=== PATIENT | male | born 1955 | race Caucasian/White ===

== ENCOUNTER 2020-07-18 08:20 | Day surgery (SDC) | payer OTHER, SELFPAY ==
--- NOTE | 2020-07-15 16:27 | EKG12_ITS ---
Test Reason : PRE OP Blood Pressure : / mmHG Vent. Rate : 078 BPM Atrial Rate : 078 BPM P-R Int : 150 ms QRS Dur : 088 ms QT Int : 384 ms P-R-T Axes : 062 052 068 degrees QTc Int : 437 ms Normal sinus rhythm Normal ECG Confirmed by HECTOR HOLLIDAY, KUNAL ([id number]), editor city DIANE DEJESUS ([id number]) on 07/19/2020 9:34:53 AM Referred By: Alfredo Marshall Confirmed By:KUNAL YOUNG MD
[2020-07-15 17:11] LABS: Hematocrit 51.1 % (40-54); Hemoglobin 16.2 g/dL (13.0-16.5); Mean Corp Hgb Conc 31.7 g/dL (32-36); Mean Corpuscular Hgb 29.6 pg (27.0-32.0); Mean Corpuscular Volume 93.2 fL (80-94); Mean Platelet Vol. 8.5 fl (6.2-12.0); Platelet Count 312 K/mm3 (150-450); RBC Distribution Width CV 12.9 % (11.6-14.6); RBC Distribution Width SD 44.2 fl (35.1-43.9); Red Blood Count 5.48 M/mm3 (4.6-6.2); White Blood Count 10.7 K/mm3 (4.4-11.0)
[2020-07-15 17:22] LABS: Anion Gap 3 (5-15); BUN 15 mg/dL (7-18); BUN/Creat Ratio 16.1 RATIO (10-20); Chloride 106 mmol/L (98-107); Creatinine, Serum 0.93 mg/dL (0.70-1.30); EST Glomerular Filtration Rate 87 mL/min (>60); Est Glom Filt Rate - Afr Amer 105 mL/min (>60); Glucose 128 mg/dL (74-106); Potassium 3.9 mmol/L (3.5-5.1); Sodium Level 139 mmol/L (136-145)
[2020-07-18] VITALS (8 sets, daily range): BP systolic 122–142; BP diastolic 77–94; PULSE 68–81; RESP 16; TEMP 35.7–36.6; O2SAT 95–100; BMI 26.7
--- NOTE | 2020-07-18 | LES_PTH ---
PATIENT: VIVI GRACIA LOC: [facility] [place] U#:[id number] AGE/SX: 65/M ROOM: RE07/18/[address]: Dr. Alfredo Marshall MD : [id number] BED: DIS: 07/18/2020 SPEC #: [id number] RECD: 07/18/20 10:49 STATUS: YANA STAN #: [id number] LUIGI: 07/18/20 00:[address]: Alfredo Marshall DEPT: SURGICAL PATHOLOGY RECD BY: Ligia Wright ENTERED: 07/18/20 11:21 SP TYPE: Lesion OTHR DR: Dr. Rodriguez Ibarra MD Tissues: A - Skin of external ear, NOS B - Skin of external ear, NOS C - Skin of external ear, NOS D - Skin of external ear, NOS E - Skin of external ear, NOS Procedures: Frozen Section (charge) Surgery Specimen Level IV HEADER OPERATION: Excision ear carcinoma with frozen section PRE-OP DIAGNOSIS: Basal cell carcinoma of skin of left ear and external auricular canal TISSUE SUBMITTED: A - Left ear lesion, FS, B - Left ear, additional superior margin, FS, C - Left ear, additional inferior margin, FS, D - Left ear, additional deep margin, E - Left ear, completion deep margin FROZEN SECTION DIAGNOSIS A. Left ear lesion, excision: Basal cell carcinoma. Superior and inferior margins are positive for tumor. Medial margin is negative for tumor. SJ: 07/18/2020 B. Left ear, additional superior margin, biopsy: No evidence of carcinoma. C. Left ear, additional inferior margin, biopsy: No evidence of carcinoma. AM: 07/18/2020 Case has been reviewed in consultation with Dr. Mendez who concurs with the above diagnosis. IDC:[email or web address] MICROSCOPIC DIAGNOSIS A. Left ear lesion, excision: Basal cell carcinoma. Solar elastosis. See comment. B. Additional superior margin: Negative for carcinoma. Solar elastosis. C. Additional inferior margin: No evidence of carcinoma. Solar elastosis. D. Left ear carcinoma, additional deep margin: Negative for carcinoma. Solar elastosis. E. Completion deep margin: No evidence of carcinoma. Solar elastosis. SJ: 07/19/2020 COMMENT A. The tumor is present at the superior and inferior margins of the specimen. It measures 1 cm in greatest dimension. The tumor abuts the underlying cartilage. No invasion into the cartilage is noted. MICROSCOPIC DESCRIPTION Slides are reviewed. GROSS DESCRIPTION A - Received fresh for frozen section diagnosis labeled with the patient's name is a specimen designated left ear. The specimen consists of a wedge-shaped piece of dia-white skin measuring 1.5 x 1.2 x 0.4 cm. The specimen is oriented by sutures as follows: long stitch ? inferior 6 o?clock, short stitch ? laterally 3 o?clock. The specimen is inked as follows: superior margin ? blue, inferior margin ? green and medial margin ? black. The skin surface shows an area of ulceration measuring 0.7 x 0.6 cm. The specimen is serially sectioned and submitted entirely for frozen section diagnosis in two cassettes as follows: 1??superior and inferior margin, enface, 2 ? rest of the specimen. B - Received fresh for frozen section diagnosis labeled with the patient's name is a specimen designated additional superior margin. The specimen consists of a wedge-shaped piece of skin measuring 1.3 x 0.5 x 0.5 cm. The specimen is inked as follows: 3 o?clock margin ? black and 9 o?clock margin ? yellow. The entire specimen is submitted for frozen section diagnosis with superior margin, enface. C - Received fresh for frozen section diagnosis labeled with the patient's name is a specimen designated additional inferior margin. The specimen consists of a wedge-shaped piece of dia-white skin measuring 1 x 0.7 x 0.3 cm. The specimen is oriented by sutures as follows: long stitch ? 6 o?clock and short stitch ? 3 o?clock. The 9 o?clock margin is inked black. The entire specimen is submitted as inferior margin enface in one cassette. D - Received in fixative is one container labeled with the patient's name and designated left ear carcinoma, additional deep margin. The specimen consists of a triangular piece of dia-white skin measuring 1 x 0.6 x 0.3 cm. The specimen is bisected and submitted entirely in one cassettes. E - Received in fixative is one container labeled with the patient's name and designated completion deep margin. The specimen consists of a triangular piece of skin measuring 1.2 x 0.7 x 0.5 cm. The specimen is bisected and submitted entirely in one cassette. / SJ:rg 07/18/20 TC:0 CPT: 40691 x5, 67787 x3
[2020-07-18] MEDS: Lactated Ringers 1,000 ML 100 ML IV (09:01)
--- NOTE | 2020-07-18 09:53 | PCM.DC ---
Discharge Instructions Follow Up Care Please Follow Up With: Alfredo Marshall MD When: next week for suture removal. Test Results: Test results from this visit will be discussed in further detail at your follow-up appointment, if applicable. Discharge Plan Admission Attending Provider: Alfredo Marshall Primary Care Provider: Rodriguez Ibarra Discharge Orders/Prescriptions Prescriptions: No Action atorvastatin 80 mg Tablet 80 mg PO QHS RF: 0 clopidogrel [Plavix] 75 mg Tablet 75 mg PO DAILY RF: 0 metoprolol succinate 25 mg Tablet Extended Release 24 Hr 37.5 mg PO BID RF: 0
[2020-07-18] MEDS: Lidocaine 1% /Epi 1:100 (20ml) 20 ML Vial (10:40)
[2020-07-18] MEDS: Mupirocin Ointment 22gm Tube 1 APPLIC (11:38)
--- NOTE | 2020-07-18 11:52 | PCM.OPRPT ---
Report of Operation Date of Procedure: 07/18/20 Pre-Operative Diagnosis: basal cell carcinoma left ear Post-Operative Diagnosis: same Surgery/Procedure Performed:: Excision basal cell carcinoma left ear (size of defect 3x3 cm) Local flap reconstruction (star flap) Surgeon: Alfredo Marshall Type of Anesthesia: Local MAC Anesthesiologist: hayley richter Estimated Blood Loss (mL): minimal Description of Procedure: The patient was taken to the operating room on 07/18/2020. He was placed in the supine position on the operating room table. He was given sufficient local MAC anesthesia. The left ear was prepped and draped sterilely. 1% lidocaine with epinephrine was injected into the skin surrounding the intended incision sites. After sufficient vasoconstriction and anesthesia, the basal cell was excised in a wedge with 5 mm margin superiorly and inferiorly. These were full-thickness incisions including the cartilage and posterior skin. Hemostasis was achieved with monopolar cautery. I eventually heard from anesthesia that I had a positive margin superiorly and inferiorly. Thus, additional inferior and superior margins were sent. Again, these were full-thickness incisions including the cartilage and posterior skin. Once I had heard back from pathology that the additional margins were clear, I entertained closure. I irrigated the wound with saline. Next I fashioned a star flap by excising a wedge from the superior edge. I also completed the wedge excision anteriorly. Both of these wedges were sent for permanent section. Again monopolar cautery was used for hemostasis. I then closed the cartilage with interrupted 4-0 chromic. I then closed the skin with interrupted 6-0 nylon. Antibiotic ointment and a Christianne dressing were then applied. The patient was removed from the operating room and brought to the recovery room in stable condition. Blood loss minimal replacement none. Sponge, needle, and instrument count were correct at the end of the procedure.
== END 2020-07-18 13:28 ==
LOC: SDC 08:21 → AC 08:22
PROVIDERS: PCP Family Medicine; Referring Provider Otolaryngology; Visit Provider Otolaryngology
PROC: (CPT 14060; principal; 2020-07-18 09:50)
DX: C44.219 Basal cell carcinoma of skin of left ear and external auricular canal (principal); Z20.822 Contact with and (suspected) exposure to COVID-19; L57.8 Other skin changes due to chronic exposure to nonionizing radiation; W89.9XXA Exposure to unspecified man-made visible and ultraviolet light, initial encounter; Y93.9 Activity, unspecified; Y92.9 Unspecified place or not applicable; Y99.9 Unspecified external cause status; I25.10 Atherosclerotic heart disease of native coronary artery without angina pectoris; I10 Essential (primary) hypertension; E78.00 Pure hypercholesterolemia, unspecified; I25.2 Old myocardial infarction; Z79.02 Long term (current) use of antithrombotics/antiplatelets; Z79.899 Other long term (current) drug therapy; Z87.891 Personal history of nicotine dependence
CPT/HCPCS: 00300; 14060; 36415; 80048; 85027; 87426; 88305; 88331; 93005; C9803; J7120; J2405